=== PATIENT | male | born 2000 | race Caucasian/White ===

== ENCOUNTER 2019-04-05 02:27 | Emergency (ER) | payer OTHER ==
[~2019-04-05] VITALS: Ht 182.9 cm; Wt 70.3 kg
[2019-04-05 02:44] VITALS: BP 104/74
--- NOTE | 2019-04-05 03:32 | Diagnostic Imaging Report ---
EXAM: XR Left Hand Complete, 3 or More Views CLINICAL HISTORY: PAIN TECHNIQUE: Frontal, lateral and oblique views of the left hand. COMPARISON: None. FINDINGS: Bones/joints: Acute nondisplaced fracture at the base of the left fourth are metacarpal is noted. Possible subtle acute nondisplaced fracture at the base of the left third metacarpal. Remaining osseous structures are within normal limits. No dislocation. Soft tissues: Unremarkable. No radiopaque foreign body. Other findings: This finding requires clinical correlation. Anatomic alignment is unremarkable. IMPRESSION: Acute transverse nondisplaced fracture at the base of the left fourth metacarpal. Possible very subtle nondisplaced fracture of the base of the left third metacarpal. Clinical correlation is advised.
[2019-04-05] MEDS ORDERED: Bacitracin Oint UD TOPIC ONE ×2 (03:43→03:45)
[2019-04-05] MEDS ORDERED: IBUPROFEN600 MG ORAL (03:55)
[2019-04-05 04:05] VITALS: BP 112/76
--- NOTE | 2019-04-05 05:59 | Emergency Room Report ---
History of Present Illness General Chief Complaint: Upper Extremity Injury Source: Patient Present Illness HPI 18-year-old male presents ED complaining of left hand pain. States that tonight he punched a wall. States there was some bleeding to his knuckle. States that his tetanus is up-to-date. Pain is throbbing, 9 out of 10, nonradiating. Denies any other injury. No other aggravating relieving factors. Denies any other associated symptoms Allergies: Coded Allergies: No Known Allergies (Unverified , 04/05/19) Patient History Past Medical History: none Past Surgical History: none Pertinent Family History: none Social History: Denies: smoking, alcohol use, drug use Immunizations: UTD Reviewed Nursing Documentation: PMH: Agreed; PSxH: Agreed Nursing Documentation-PMH Past Medical History: No Stated History Review of Systems All Other Systems: negative except mentioned in HPI Physical Exam Vital Signs Date Time Temp Pulse Resp B/P (MAP) Pulse Ox O2 Delivery O2 Flow Rate FiO2 04/05/19 02:37 97.9 66 14 104/74 (84) 95 Room Air Sp02 EP Interpretation: reviewed, normal General Appearance: no apparent distress, alert, GCS 15, non-toxic Head: normocephalic Eyes: bilateral eye normal inspection, bilateral eye PERRL ENT: normal ENT inspection Neck: normal inspection Respiratory: normal inspection Cardiovascular #1: normal inspection Gastrointestinal: normal inspection Rectal: deferred Genitourinary: no CVA tenderness Musculoskeletal: back normal, normal range of motion, gait/station normal, tender - L hand, swelling Neurologic: alert, motor strength/tone normal, oriented x3, sensory intact, responsive, speech normal Psychiatric: normal inspection Skin: no rash Lymphatic: normal inspection Procedures Splinting Splinting : Consent: Verbal Pre-Made Type: velcro Splint: wrist Pre-Proc Neuro Vasc Exam: normal Post-Proc Neuro Vasc Exam: normal Patient Tolerated: Well Complications: None Medical Decision Making Diagnostic Impression: Primary Impression: Fracture, metacarpal Qualified Codes: S62.345A - Nondisplaced fracture of base of fourth metacarpal bone, left hand, initial encounter for closed fracture ER Course Hospital Course 18-year-old M presents to ED complaining of L hand pain s/p punched wall Differential diagnoses include: Fracture, dislocation, sprain, contusion Clinical course Patient placed on stretcher. After initial history and physical, I ordered pain medications and Xrays of L hand Xrays read shows L 4th metacarpal fx. ? 3rd metacarpal fx. placed in wrist splint Discussed findings with patient. Will discharge to home. Safe for discharge with close outpatient follow-up. I will provide Ortho referral Diagnosis - metcarpal fx Stable and discharged to home with prescription for Motrin. apply ice, keep elevated. Followup with PMD/ortho. Return to ED if symptoms recur or worsen Other X-Ray Diagnostic Results Other X-Ray Diagnostic Results : X-Ray ordered: L hand # of Views/Limited Vs Complete: 3 View Indication: Pain EP Interpretation: Yes Interpretation: no dislocation, other - 4th metacarpal fx Impression: Other - fx Electronically Signed by: Electronically signed by Austin Rodrigues MD Last Vital Signs Date Time Temp Pulse Resp B/P (MAP) Pulse Ox O2 Delivery O2 Flow Rate FiO2 04/05/19 04:05 97.9 76 16 112/76 97 Room Air Status: improved Disposition: HOME, SELF-CARE Condition: Stable Scripts Ibuprofen* (MOTRIN*) 600 Mg Tablet 600 MG ORAL Q8H PRN for For Pain, #30 TAB 0 Refills Prov: Austin Rodrigues MD 04/05/19 Referrals: NOT CHOSEN IPA/,REFERRING (PCP) [facility] Open 24 hour /7 days a week by Appointment Only [address] [facility] [address] [facility] [address] Patient Instructions: Metacarpal Fracture, [id number] Austin Rodrigues MD Apr 05, 2019 05:59
== END 2019-04-05 04:05 | disposition home or self-care (01) ==
LOC: EMR 02:51
DX: S62.345A Nondisplaced fracture of base of fourth metacarpal bone, left hand, initial encounter for closed fracture (principal); W22.8XXA Striking against or struck by other objects, initial encounter; Y93.89 Activity, other specified; Y92.9 Unspecified place or not applicable
CPT/HCPCS: 29125; 99283